=== PATIENT | male | born 1980 | race Caucasian/White ===

== ENCOUNTER 2017-06-20 14:01 | Emergency (ER) | payer OTHER ==
[~2017-06-20] VITALS: Ht 180.3 cm; Wt 135.5 kg
[2017-06-20 14:07] VITALS: BP 145/85
== END 2017-06-20 15:18 | disposition home or self-care (01) ==
LOC: ED 15:12
DX: J98.01 Acute bronchospasm (principal)
CPT/HCPCS: 71020; 99284